=== PATIENT | male | born 1970 | race Caucasian/White ===

== ENCOUNTER 2017-03-18 12:54 | Emergency (ER) | payer OTHER ==
[~2017-03-18] VITALS: Ht 180.3 cm; Wt 215.5 kg
--- NOTE | 2017-03-18 14:09 | ED UPPER/LOWER EXTREMITY COMPL ---
History of Present Illness General Chief Complaint: Lower Extremity Problems Stated Complaint: LEFT KNEE PROBLEMS Source: patient Exam Limitations: no limitations Vital Signs & Intake/Output Vital Signs & Intake/Output Vital Signs Date Time Temp Pulse Resp B/P B/P Pulse O2 O2 Flow FiO2 Mean Ox Delivery Rate 03/18 1300 97.1 91 20 135/85 96 Allergies Coded Allergies: bee venom protein (honey bee) (UNKNOWN 03/18/17) Reconcile Medications No Known Home Medications Triage Note: LEFT KNEE PAIN FOR SEVERAL YEARS. PRESENTS TODAY AFTER LEFT KNEE IS POPPING OUT OF SOCKET FOR PAST THREE DAYS. Triage Nurses Notes Reviewed? yes HPI: This patient is a 46-year-old male who presented to the emergency department today for evaluation of left knee pain. 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 However, over the last year and half he has noticed that when he works on his knees it feels like, "things are moving around in there." He reported that over the last week he has been having worsening pain in his knee. He reports that the pain gets up to a 7 out of 10. He was unable to describe the pain. The pain is nonradiating. He denied any numbness or tingling in his extremities. No ankle or hip pain. He denied any falls or trauma to the area. (ZOFIA VIRAMONTES PA-C) Past History Travel History Traveled to [place] past 21 day No Medical History Any Pertinent Medical History? see below for history Surgical History Surgical History: non-contributory Psychosocial History What is your primary language Korean Tobacco Use: Never used Family History Hx Contributory? No (ZOFIA VIRAMONTES PA-C) Review of Systems Review of Systems Constitutional: Reports: no symptoms. EENTM: Reports: no symptoms. Respiratory: Reports: no symptoms. Cardiovascular: Reports: no symptoms. Gastrointestinal/Abdominal: Reports: no symptoms. Genitourinary: Reports: no symptoms. Musculoskeletal: Reports: see HPI. Skin: Reports: no symptoms. Neurological/Psychological: Reports: no symptoms. All Other Systems: Reviewed and Negative (ZOFIA VIRAMONTES PA-C) Physical Exam Physical Exam General Appearance: well developed/nourished, no apparent distress, alert, awake Comments: Well-developed well-nourished person in no acute distress HEENT: Head normocephalic, moist mucous membranes Neck: Supple, no lymphadenopathy Back: Antalgic gait Respiratory: No respiratory distress. Speaking in full sentences Left knee: No effusions or overlying erythema or ecchymosis. No bony or muscular deformities. Nontender to palpation over the joint space or surrounding musculature. No laxity on anterior drawer test or Yasir's maneuver. Negative valgus and varus stress testing. Full range of motion of the knee. Neuro: Alert and oriented x3 Psych: Mood affect normal, normal memory normal judgment. Skin: Warm and dry, no rash on exposed skin (ANA M BLAKE,ZOFIA) Progress Differential Diagnosis: compartment syndrome, dislocation, DVT, fracture, septic arthritis, sprain, tendon injury Plan of Care: Orders Procedure Date/time Status Durable Medical Equipment 03/18 1419 Active Diagnostic Imaging: Viewed by Me: Radiology Read. Discussed w/RAD: Radiology Read. Radiology Impression: PATIENT: MARGE JUNG PRESENT AGE: 46 PATIENT ACCOUNT NO: [id number] : 70 LOCATION: [facility] ORDERING PHYSICIAN: ZOFIA VIRAMONTES PA-C SERVICE DATE: 03/18/17 EXAM TYPE: RAD - XRY-KNEE, LEFT EXAMINATION: XR KNEE, LEFT CLINICAL INFORMATION: Pain , rule out dislocation COMPARISON: None TECHNIQUE: Four views of the left knee. FINDINGS: Osseous alignment is anatomic. Joint spaces appear maintained. No acute fracture is seen. There is suggestion of a trace effusion. IMPRESSION: Normal alignment. Suggestion of a trace effusion. DICTATED BY: RIC BISHOP MD DATE/TIME DICTATED:03/18/171420 VEHICLE SERVICE ATTENDANT:MAYNOR DATE/TIME TRANSCRIBED:03/18/171420 CONFIDENTIAL, DO NOT COPY WITHOUT APPROPRIATE AUTHORIZATION. <Electronically signed in Other Vendor System> SIGNED BY: RIC BISHOP MD 03/18/171426 (ANA M BLAKE,ZOFIA) Departure Departure Disposition: HOME OR SELF CARE Condition: Stable Clinical Impression Primary Impression: Knee pain Qualifiers: Laterality: left Chronicity: chronic Qualified Codes: M25.562 - Pain in left knee; G89.29 - Other chronic pain Referrals: SAMUEL CARDONA,KAIDEN LIU MD,MARCIN (PCP/Family) Additional Instructions: Please follow-up with the orthopedist whose information has been provided to you in this packet. Use knee brace as directed. Return for any worsening symptoms or concerns. Departure Forms: Customer Survey General Discharge Information Prescriptions: Current Visit Scripts No Known Home Medications (ANA M BLAKE,ZOFIA) PA/FORKLIFT TRUCK OPERATOR Co-Sign Statement Statement: ED Attending supervision documentation- [] I saw and evaluated the patient. I have also reviewed all the pertinent lab results and diagnostic results. I agree with the findings and the plan of care as documented in the PA's/FORKLIFT TRUCK OPERATOR's documentation. [X] I have reviewed the ED Record and agree with the PA's/FORKLIFT TRUCK OPERATOR's documentation. [] Additions or exceptions (if any) to the PAs/FORKLIFT TRUCK OPERATOR's note and plan are summarized below: [] (KYLEIGH CARDONA,DAVID Contreras)
--- NOTE | 2017-03-18 14:27 | RADIOLOGY REPORT ---
EXAMINATION: XR KNEE, LEFT CLINICAL INFORMATION: Pain, rule out dislocation COMPARISON: None TECHNIQUE: Four views of the left knee. FINDINGS: Osseous alignment is anatomic. Joint spaces appear maintained. No acute fracture is seen. There is suggestion of a trace effusion. IMPRESSION: Normal alignment. Suggestion of a trace effusion.
[2017-03-18 15:02] VITALS: BP 126/84
== END 2017-03-18 15:02 ==
LOC: ERH 12:54
DX: M25.562 Pain in left knee (principal)
CPT/HCPCS: 73560-LT